=== PATIENT | male | born 1995 | race Caucasian/White ===

== ENCOUNTER 2021-07-17 09:59 | Inpatient (IN) | payer OTHER ==
[~2021-07-17] VITALS: Ht 185.4 cm; Wt 74.8 kg
[2021-07-17 11:05] LABS: HEMOGLOBIN 17.8 gm/dl (14.0-17.5); RED BLOOD COUNT 5.82 M/UL (4.20-5.50); WHITE BLOOD COUNT 7.4 K/UL (4.5-11.0)
[2021-07-17 11:27] LABS: BUN/CREATININE RATIO 13 (0-10)
[2021-07-17] MEDS ORDERED: HUMULIN R100 UNIT/1 INJ (13:20)
[2021-07-17] MEDS ORDERED: LANTUS SOL100 UNIT/1 SQ (13:20)
[2021-07-17 13:56] LABS: BUN/CREATININE RATIO 12 (0-10)
[2021-07-17 17:06] LABS: BUN/CREATININE RATIO 11 (0-10)
[2021-07-17 21:20] LABS: BUN/CREATININE RATIO 6 (0-10)
[2021-07-18 03:39] LABS: WHITE BLOOD COUNT 7.2 K/UL (4.5-11.0)
[2021-07-18 03:49] LABS: HEMOGLOBIN 14.5 gm/dl (14.0-17.5); RED BLOOD COUNT 4.81 M/UL (4.20-5.50)
[2021-07-18 04:09] LABS: BUN/CREATININE RATIO 8 (0-10)
[2021-07-19 03:40] LABS: BUN/CREATININE RATIO 10 (0-10)
[2021-07-19] MEDS ORDERED: PROTONIX 40 MG40 M1 PO (12:11)
== END 2021-07-19 15:04 | disposition home or self-care (01) | DRG 639 ==
LOC: ER1 09:59 → CDU 12:05 → CCU 17:43 → PROG CARE 07-18 00:54
PROVIDERS: Emergency Medicine; Physician Assistant; ADMIT Internal Medicine Infectious Disease
DX: E10.10 Type 1 diabetes mellitus with ketoacidosis without coma (principal); Z20.822 Contact with and (suspected) exposure to COVID-19; K21.9 Gastro-esophageal reflux disease without esophagitis; F17.210 Nicotine dependence, cigarettes, uncomplicated; R53.81 Other malaise; Z79.4 Long term (current) use of insulin; Z88.8 Allergy status to other drugs, medicaments and biological substances; Z71.6 Tobacco abuse counseling
CPT/HCPCS: 0240U; 36415; 71045; 80048; 80053; 81001; 82803; 82962; 83036; 83605; 83735; 85025; 96374; 96375; 99285; C9113; J1650; J2405; J3480; J7030